=== PATIENT | male | born 1965 | race Caucasian/White ===

== ENCOUNTER 2023-10-15 06:34 | Day surgery (SDC) | payer OTHER ==
[2023-10-11 09:39] VITALS: BMI 28.5
[~2023-10-15 06:34] MED LIST: LIDOCAINE 1% (10MG/ML) FOR IV START INTRADERMA PRN
[2023-10-15 07:11] VITALS: TEMP 97.4
[2023-10-15] MEDS: IV FLUID CONTINUATION 1,000 ML IV ONE ×2 (07:19→07:27)
[2023-10-15] MEDS: LACTATED RINGERS 1,000 ML IV SCH (07:20)
[2023-10-15] MEDS ORDERED: PROPOFOL 10 MG/ML 20 ML VIAL IV ONE (07:30)
--- NOTE | 2023-10-15 07:51 | P.PCN ---
Date of Procedure: 10/15/23 Procedure(s) Performed: BRIEF HISTORY: Patient is a 58-year-old pleasant White male scheduled for an elective colonoscopy as a part of screening for colon cancer. PROCEDURE PERFORMED: Colonoscopy with biopsy and snare polypectomy. PREOPERATIVE DIAGNOSIS: Screening for colon cancer. IV sedation per Anesthesia. PROCEDURE: After informed consent was obtained, the patient, was brought into the endoscopy unit. IV sedation was administered by Anesthesia under continuous monitoring. Digital rectal examination was normal. Initially the Olympus CF-160 flexible video colonoscope was then inserted in the rectum, gradually advanced into the cecum without any difficulty. Careful examination was performed as the scope was gradually being withdrawn. Ileocecal valve and the appendiceal orifice were visualized and appeared normal. Prep was excellent. Mucosa of the cecum, ascending colon, normal-appearing hepatic show there was a 3 mm polyp that was removed by cold biopsy and a 6 mm polyp that was removed by cold snare polypectomy. In the descending colon there was a 5 mm polyp removed by cold snare polypectomy. Rest of the transverse colon, descending colon, appeared normal. In the distal sigmoid colon there was a 1 cm polyp removed by snare polypectomy. Moderate sigmoid diverticulosis seen. Sigmoid colon, and rectum appeared normal. Retroflexion was performed in the rectum and no lesions were seen. The patient tolerated the procedure well. IMPRESSION: 3 mm hepatic rectal polyp status post cold biopsy 6 mm hepatic flexure polyp status post cold snare polypectomy 5 mm descending colon polyps s/p polypectomy 1 cm distal sigmoid colon polyp s/p polypectomy Moderate sigmoid diverticulosis. RECOMMENDATIONS: Findings of this examination were discussed with the patient as well as his family. He was advised to follow the biopsy results. If the biopsy contacted him he can have repeat colonoscopy 3 yes.
[2023-10-15] MEDS: ONDANSETRON 4 MG/2 ML VIAL IVP STA (08:04)
[2023-10-15 08:26] VITALS: BP 146/91; PULSE 52; RESP 18
== END 2023-10-15 08:44 | disposition home or self-care (01) ==
LOC: ORWHC2ENDO 06:34
PROVIDERS: ATTEND Internal Medicine Gastroenterology
DX: Z12.11 Encounter for screening for malignant neoplasm of colon (principal); D12.3 Benign neoplasm of transverse colon; D12.4 Benign neoplasm of descending colon; D12.5 Benign neoplasm of sigmoid colon; K57.30 Diverticulosis of large intestine without perforation or abscess without bleeding; L40.9 Psoriasis, unspecified; Z88.8 Allergy status to other drugs, medicaments and biological substances
CPT/HCPCS: 45380; 45385; J2405; J2704; 88305